=== PATIENT | female | born 1970 | race African-American/Black ===

== ENCOUNTER 2017-10-03 19:30 | Emergency (ER) | payer OTHER ==
[~2017-10-03] VITALS: Ht 167.6 cm; Wt 71.0 kg
[2017-10-04 01:10] VITALS: BP 121/67
== END 2017-10-04 01:45 | disposition home or self-care (01) ==
LOC: ER 19:30
DX: H66.90 Otitis media, unspecified, unspecified ear (principal); E11.9 Type 2 diabetes mellitus without complications
CPT/HCPCS: 99283

== ENCOUNTER 2018-03-02 09:43 | Emergency (ER) | payer MEDICARE, MEDICAID, OTHER ==
[~2018-03-02] VITALS: Ht 167.6 cm; Wt 73.0 kg
[2018-03-02 11:03] VITALS: BP 121/79
== END 2018-03-02 11:05 | disposition home or self-care (01) ==
LOC: ER 09:43
DX: H10.13 Acute atopic conjunctivitis, bilateral (principal); E11.9 Type 2 diabetes mellitus without complications
CPT/HCPCS: 99283

== ENCOUNTER 2018-12-25 09:59 | Emergency (ER) | payer BC, MEDICAID, OTHER ==
[~2018-12-25] VITALS: Ht 167.6 cm; Wt 75.0 kg
[2018-12-25 10:15] VITALS: BP 127/85
[2018-12-25] MEDS ORDERED: DIPHENHYDRAMINE 25MG CAPSULE PO ONE (10:45)
== END 2018-12-25 11:06 | disposition home or self-care (01) ==
LOC: ER 09:59
DX: R21 Rash and other nonspecific skin eruption (principal); E11.9 Type 2 diabetes mellitus without complications
CPT/HCPCS: 99283; Q0163